=== PATIENT | female | born 1940 | race Hispanic/Latino ===

== ENCOUNTER 2017-01-23 08:29 | Outpatient (CLI) | payer OTHER ==
--- NOTE | 2017-01-23 13:58 | Mammography Report ---
BILATERAL DIGITAL SCREENING MAMMOGRAM with CAD : 01/23/17 08:29:00 CLINICAL: Routine screening. COMPARISON:12/27/15 FINDINGS: The breasts are heterogeneously dense, which may obscure small masses and the breasts are sufficiently dense to limit the sensitivity of mammography.Bilateral benign calcifications. No mass, architectural distortion or suspicious calcifications. IMPRESSION: No mammographic evidence of malignancy. BI-RADS CATEGORY: 2 -- Benign RECOMMENDATION: Routine mammographic screening in one year. COMMENT: Patient follow-up letters are generated by our [employer] application.
== END 2017-01-23 08:30 | disposition home or self-care (01) ==
LOC: SPVWC 08:29
PROVIDERS: ATTEND Obstetrics & Gynecology
DX: Z12.31 Encounter for screening mammogram for malignant neoplasm of breast (principal)
CPT/HCPCS: 77067; G0202

== ENCOUNTER 2018-02-28 08:57 | Outpatient (CLI) | payer BC, OTHER ==
--- NOTE | 2018-02-28 16:29 | Mammography Report ---
BILATERAL DIGITAL SCREENING MAMMOGRAM with CAD and DIGITAL BREAST TOMOSYNTHESIS (DBT) : 02/28/18 CLINICAL: Routine screening. COMPARISON:01/23/17 FINDINGS: The breasts are heterogeneously dense, which may obscure small masses and the breasts are sufficiently dense to limit the sensitivity of mammography. Bilateral benign calcifications. An oval circumscribed right upper outer mass is now apparent on the digital breast tomosynthesis (DBT) and is unchanged on 2-D images. No new mass, architectural distortion or suspicious calcifications. IMPRESSION: No mammographic evidence of malignancy. BI-RADS CATEGORY: 2 - - Benign RECOMMENDATION: Routine mammographic screening in one year. COMMENT: Patient follow-up letters are generated by our [employer] application.
== END 2018-02-28 08:58 | disposition home or self-care (01) ==
LOC: SPVWC 08:57
PROVIDERS: ATTEND Obstetrics & Gynecology
DX: Z12.31 Encounter for screening mammogram for malignant neoplasm of breast (principal)
CPT/HCPCS: 77063; 77067